=== PATIENT | female | born 1945 | race Caucasian/White ===

== ENCOUNTER 2021-12-05 10:48 | Emergency (ER) | payer MEDICARE, OTHER, SELFPAY ==
[2021-12-05 11:15] VITALS: BP 139/68; PULSE 91; RESP 18; TEMP 36.6; O2SAT 98; BMI 24.3
[2021-12-05 11:24] VITALS: BP 139/68; PULSE 84; O2SAT 98
[2021-12-05 11:30] VITALS: BP 125/66; PULSE 83; O2SAT 99
[2021-12-05 12:00] VITALS: PULSE 82; O2SAT 99
[2021-12-05 12:34] LABS: Add Manual Diff / Slide Review NO; Basophils Absolute Auto 0 /uL (0-100); Basophils Percent Auto 0.4 % (0-2); Eosinophils Absolute Auto 0 /uL (0-450); Eosinophils Percent Auto 0.2 % (2-4); Hemoglobin 13.8 g/dL (12.0-16.0); Lymphocytes Absolute Auto 1200 /uL (1100-4500); Lymphocytes Percent Auto 15.9 % (25-40); Mean Corpuscular HGB Conc 34.4 % (30-36); Mean Corpuscular Volume 90.2 fL (80-100); Monocytes Absolute Auto 400 /uL (0-900); Monocytes Percent Auto 4.7 % (3-14); Neutrophils Absolute Auto 6100 /uL (1500-7000); Neutrophils Percent Auto 78.8 % (50-75); Platelet Count 171 X10^3/uL (150-400); Red Blood Cell Count 4.44 X10^6/uL (4.0-5.2); Red Cell Distribution Width 13.3 % (11.6-14.8); White Blood Cell Count 7.7 X10^3/uL (4.5-11.0)
[2021-12-05 12:41] LABS: INR 1.1 (0.9-1.3); Prothrombin Time 12.7 SECONDS (10.1-12.7)
[2021-12-05 12:44] LABS: PTT Partial Thromboplastin Tim 33 SECONDS (26-36)
[2021-12-05 12:54] LABS: Alanine Aminotransferase 18 IU/L (<35); Albumin 3.7 g/dL (3.5-5.0); Albumin Globulin Ratio 1.3 (1.0-2.8); Alkaline Phosphatase 70 U/L (38-126); Aspartate Aminotransferase 25 IU/L (14-36); BUN Creatinine Ratio 14.5 (6-22); Bilirubin Total 0.6 mg/dL (0.2-1.3); Blood Urea Nitrogen 10 mg/dL (7-17); Calcium 8.7 mg/dL (8.4-10.2); Carbon Dioxide 28 mmol/L (22-32); Chloride 103 mmol/L (98-107); Estimated Glomerular Filt Rate > 60 mL/min (>60); Globulin 2.8 g/dL (1.7-4.1); Glucose 107 mg/dL (80-110); HEMOLYSIS < 15 (0-50); Lipase 51 U/L (23-300); Potassium 3.8 mmol/L (3.4-5.1); Sodium 136 mmol/L (137-145); Total Protein 6.5 g/dL (6.3-8.2)
--- NOTE | 2021-12-05 13:30 | ED_ITS ---
HPI - Abdominal Pain General Chief Complaint: Abdominal Pain Stated Complaint: Thinks Diverticulitis attack, had one last year Time Seen by Provider: 12/05/21 13:24 Source: patient Mode of arrival: Ambulatory History of Present Illness HPI narrative: Patient is a healthy 76-year-old female history of diverticulitis presenting today with left lower quadrant pain. She has a she ate a significant amount of black tarry to yesterday this morning she felt a little nauseous and developed pain in her left lower quadrant. No fever chills or bloody diarrhea. Last year she had diverticulitis and she got Levaquin and Flagyl she says that she did not respond well to that medication and overall felt extremely poorly. She has penicillin listed as an allergy however she says that was many years ago after she had been on penicillin for a month at the end of the month she developed a rash. Related Data Previous Rx's Medication Instructions Recorded amoxicillin 875 mg-potassium 1 tab PO BID #20 tabs 12/05/21 clavulanate 125 mg tablet Allergies Allergy/AdvReac Type Severity Reaction Status Date / Time codeine Allergy Verified 12/05/21 12:01 Penicillins Allergy Verified 12/05/21 12:01 Review of Systems Review of Systems Narrative: GENERAL: Denies chills, fatigue, malaise, fever, sweats, travel HEENT: Denies sinus pain, ear pain, sore throat, difficulty swallowing, neck pain RESPIRATORY: Denies dyspnea, cough, wheezing, hemoptysis, sputum. CARDIOVASCULAR: Denies chest pain, palpitations, orthopnea, edema GASTROINTESTINAL: see HPI : Denies dysuria, frequency, incontinence, hematuria, urinary retention, flank pain. MUSCULOSKELETAL: Denies weakness, joint pain, or bony pain SKIN: No rash, no erythema, no pruritus NEUROLOGIC: Denies weakness, dizziness, headache, numbness, change in speech, confusion PSYCHIATRIC: No concerning psychosocial issues. 12 point review of systems is negative except for those stated above and HPI Patient History Social History Smoking Status: Never smoker Smoking Status: Never smoker Substance Use Type: does not use Exam Initial Vital Signs Initial Vital Signs: Vital Signs Temperature 97.9 F 12/05/21 11:15 Pulse Rate 91 H 12/05/21 11:15 Respiratory Rate 18 12/05/21 11:15 Blood Pressure 139/68 12/05/21 11:15 Pulse Oximetry 98 12/05/21 11:15 Oxygen Delivery Method 12/05/21 11:15 GENERAL: Alert well-appearing 76-year-old female HEENT: Head atraumatic,EOMI, pupils reactive, face symmetric, moist mucous membranes CARDIOVASCULAR: Regular rate and rhythm without murmurs, rubs or gallops. RESPIRATORY: Breath sounds equal bilaterally, no wheezes rales or rhonchi. ABDOMEN: Soft, minimal left lower quadrant pain no guarding no rebound no distention EXTREMITIES: Normal range of motion, no clubbing or edema. Neurovascularly int act NEUROLOGICAL: Alert and oriented x4.Normal gait and speech. SKIN: Warm, dry, no laceration, no petechiae, no rashes or lesions. Course Orders Ordered: ED Orders 12/05/21 12:00 Complete Blood Count AUTO DIFF Stat Comprehensive Metabolic Panel Stat Lipase Stat Partial Thromboplastin Time Stat Prothrombin Time INR Stat Vital Signs Vital signs: Vital Signs - 8 hr 12/05/21 11:15 12/05/21 11:24 12/05/21 11:24 Temperature 97.9 F Pulse Rate 91 H 84 Respiratory Rate 18 Blood Pressure 139/68 139/68 Pulse Oximetry 98 98 Oxygen Delivery Method Room Air 12/05/21 11:30 12/05/21 11:30 12/05/21 12:00 Temperature Pulse Rate 83 82 Respiratory Rate Blood Pressure 125/66 Pulse Oximetry 99 99 Oxygen Delivery Method 12/05/21 13:39 Temperature Pulse Rate 83 Respiratory Rate 20 Blood Pressure 117/56 L Pulse Oximetry 98 Oxygen Delivery Method Room Air MDM - Abdominal Pain Lab Data Result diagrams: 12/05/21 12:00 12/05/21 12:00 Labs: Lab Results 12/05/21 12/05/21 12/05/21 Range/Units 12:00 12:00 12:00 WBC 7.7 (4.5-11.0) X10^3/uL RBC 4.44 (4.0-5.2) X10^6/uL Hgb 13.8 (12.0-16.0) g/dL Hct 40.0 (36-46) % MCV 90.2 (80-100) fL MCH 31.0 (26-34) PG MCHC 34.4 (30-36) % RDW 13.3 (11.6-14.8) % Plt Count 171 (150-400) X10^3/uL Neut % (Auto) 78.8 H (50-75) % Lymph % (Auto) 15.9 L (25-40) % [place] % (Auto) 4.7 (3-14) % Eos % (Auto) 0.2 L (2-4) % Baso % (Auto) 0.4 (0-2) % Neut # (Auto) 6100 (2063-0458) /uL Lymph # (Auto) 1200 (9739-6347) /uL [place] # (Auto) 400 (0-900) /uL Eos # (Auto) 0 (0-450) /uL Baso # (Auto) 0 (0-100) /uL PT 12.7 (10.1-12.7) SECONDS INR 1.1 (0.9-1.3) APTT 33 (26-36) SECONDS Sodium 136 L (137-145) mmol/L Potassium 3.8 (3.4-5.1) mmol/L Chloride 103 (98-107) mmol/L Carbon Dioxide 28 (22-32) mmol/L BUN 10 (7-17) mg/dL Creatinine 0.69 (0.52-1.04) mg/dL Estimated GFR > 60 (>60) mL/min BUN/Creatinine Ratio 14.5 (6-22) Glucose 107 (80-110) mg/dL Calcium 8.7 (8.4-10.2) mg/dL Total Bilirubin 0.6 (0.2-1.3) mg/dL AST 25 (14-36) IU/L ALT 18 (<35) IU/L Alkaline Phosphatase 70 (38-126) U/L Total Protein 6.5 (6.3-8.2) g/dL Albumin 3.7 (3.5-5.0) g/dL Globulin 2.8 (1.7-4.1) g/dL Albumin/Globulin Ratio 1.3 (1.0-2.8) Lipase 51 (23-300) U/L Point of care testing: Urine Dip Bedside Urine Glucose Negative Bedside Urine Bilirubin - Negative Bedside Urine Ketone + 15 Urine Specific [place] 1.025 Bedside Urine Occult Blood - Negative Bedside Urine pH 6.0 Bedside Urine Protein - Negative Bedside Urine Urobilinogen - Negative Bedside Urine Nitrite - Negative Bedside Urine Leukocytes - Negative Esterase MDM Narrative Medical decision making narrative: Patient blood work is overall reassuring she has had pain ongoing for less than 24 hours. She is given option of CT versus antibiotics and return if getting worse. It is unlikely that this is complicated diverticulitis. She like to hold off on CT for now. She does not walk a fluoroquinolone and Flagyl but is willing to take Augmentin. Discharge Plan Departure Patient Disposition: Home Clinical Impression: Diverticulitis Instructions: DI for Diverticulitis Activity Restrictions/Additional Instructions: *You have been diagnosed with presumed diverticulitis *What to do: At this time blood work is overall reassuring. Based on her history and symptoms it is likely that of diverticulitis. If her pain should worsen you will likely need a CT scan. *Continue to take medications as directed Augmentin 875 mg twice a day for 10 days --> QFC [id number] [facility] Tylenol 1000 mg every 6 hours if needed for [id number] pain Ibuprofen 600 mg every 6 hours if needed for [id number] pain *Follow up with your primary care provider in 2-3 days or call [phone] *Return to ER if you should have increasing pain bloody stools persistent vomiting fever or any new, worsening or concerning symptoms Prescriptions: New amoxicillin-pot clavulanate 875-125 mg tablet 1 tab PO BID Qty: 20 0RF Visit Report Forms: Patient Portal/API
[2021-12-05 13:39] VITALS: BP 117/56; PULSE 83; RESP 20; O2SAT 98
== END 2021-12-05 13:45 | disposition home or self-care (01) ==
PROVIDERS: Emergency Provider Emergency Medicine
DX: K57.92 Diverticulitis of intestine, part unspecified, without perforation or abscess without bleeding (principal)
CPT/HCPCS: 36415; 80053; 81003; 83690; 85025; 85610; 85730; 99283